=== PATIENT | male | born 1930 | race Caucasian/White ===

== ENCOUNTER 2017-11-23 14:16 | Emergency (ER) | payer MEDICARE, OTHER ==
[~2017-11-23] VITALS: Ht 182.9 cm; Wt 88.5 kg
[2017-11-23] MEDS ORDERED: GLIP5 PO (14:26)
[2017-11-23] MEDS ORDERED: Pantoprazole So40 MG PO (14:26)
[2017-11-23] MEDS ORDERED: TAMS.4ER PO (14:27)
[2017-11-23] MEDS ORDERED: FINA5 PO (14:27)
[2017-11-23] MEDS ORDERED: HYDSUL200 PO (14:27)
[2017-11-23] MEDS ORDERED: CLOP75 PO (14:27)
[2017-11-23] MEDS ORDERED: ROSUVASTATIN CA20 MG PO (14:27)
[2017-11-23] MEDS ORDERED: LOSA50 PO (14:28)
[2017-11-23] MEDS ORDERED: MYRBETRIQ50 MG PO (14:28)
== END 2017-11-23 16:22 | disposition home or self-care (01) ==
LOC: ER 14:16
DX: S61.213A Laceration without foreign body of left middle finger without damage to nail, initial encounter (principal); Z88.0 Allergy status to penicillin; Z79.899 Other long term (current) drug therapy; Z79.84 Long term (current) use of oral hypoglycemic drugs; Z87.891 Personal history of nicotine dependence; W26.8XXA Contact with other sharp object(s), not elsewhere classified, initial encounter
CPT/HCPCS: 12002; 99283

== ENCOUNTER 2017-12-05 09:57 | Emergency (ER) | payer MEDICARE, OTHER ==
[~2017-12-05] VITALS: Ht 182.9 cm; Wt 88.5 kg
[~2017-12-05 09:57] MED LIST: CLOP75 PO; FINA5 PO; GLIP5 PO; HYDSUL200 PO; LOSA50 PO; MYRBETRIQ50 MG PO; Pantoprazole So40 MG PO; ROSUVASTATIN CA20 MG PO; TAMS.4ER PO
== END 2017-12-05 10:48 | disposition home or self-care (01) ==
LOC: ER 09:57
DX: S61.213D Laceration without foreign body of left middle finger without damage to nail, subsequent encounter (principal); T23.212A Burn of second degree of left thumb (nail), initial encounter; Z88.0 Allergy status to penicillin; Z79.899 Other long term (current) drug therapy; Z79.84 Long term (current) use of oral hypoglycemic drugs; Z87.891 Personal history of nicotine dependence; X16.XXXA Contact with hot heating appliances, radiators and pipes, initial encounter